=== PATIENT | female | born 1975 | race Caucasian/White ===

== ENCOUNTER → 2017-05-06 | Outpatient (CLI) | payer OTHER ==
--- NOTE | 2017-05-06 10:38 | CT ---
EXAMINATION TYPE: CT abdomen pelvis w con DATE OF EXAM: 05/06/2017 COMPARISON: NONE HISTORY: Bowel issues post total hysterectomy CT DLP: 373.4 mGycm CONTRAST: CT scan of the abdomen and pelvis is performed without Oral Contrast and with IV Contrast, patient in jected with 100 mL of Omnipaque 300. FINDINGS: LUNG BASES-: No visible nodule. No infiltrate. LIVER/GB: No calcified gallstones. Small hepatic cyst posterior segment right hepatic lobe. Mild he patic steatosis. Biliary tree is of normal caliber. PANCREAS: No inflammation. No distinct mass. SPLEEN: No splenic enlargement. No lesion seen. ADRENALS: No nodule. No thickening. KIDNEYS/BLADDER: No hydronephrosis. No nephrolithiasis. No disctinct renal mass. Urinary bladder g rossly unremarkable. BOWEL: Normal appendix. Normal bowel caliber. No inflammation. Mild fecal stasis identified. GENITAL ORGANS: Hysterectomy changes are identified. LYMPH NODES: No greater than 1cm abdominal or pelvic lymph nodes are appreciated. AORTA: No significant abnormality. OSSEOUS STRUCTURES: No significant abnormality is seen. OTHER: No significant additional abnormality is seen. IMPRESSION: 1. Mild fecal stasis. 2. Mild hepatic steatosis. 3. Small hepatic cyst.
== END | disposition home or self-care (01) ==
LOC: RADCTMAIN 09:51
PROVIDERS: ATTEND Family Medicine
DX: K76.0 Fatty (change of) liver, not elsewhere classified (principal); K76.89 Other specified diseases of liver; R93.3 Abnormal findings on diagnostic imaging of other parts of digestive tract
CPT/HCPCS: 74177; Q9967

== ENCOUNTER 2017-05-14 11:29 | Emergency (ER) | payer OTHER ==
[2017-05-14] MEDS ORDERED: KETOROLAC 60 MG/2 ML VIAL IVP STA (12:27)
[2017-05-14] MEDS ORDERED: PROMETHAZINE INJ 25 MG/ML 1 ML VIAL IM STA (12:27)
[2017-05-14] MEDS ORDERED: diphenhydrAMINE 50 MG/ML 1 ML VIAL IVP STA (12:27)
[2017-05-14] MEDS ORDERED: SODIUM CHLORIDE 0.9% 1,000 ML IV ONE (12:28)
--- NOTE | 2017-05-14 12:34 | ED ---
General Adult HPI - General Chief complaint: Headache Stated complaint: Headache 13 days Time Seen by Provider: 05/14/17 11:50 Source: patient, RN notes reviewed Mode of arrival: ambulatory Limitations: no limitations - History of Present Illness Initial comments: This is a 42-year-old female who presents emergency Department with a past medical history significant for migraine headaches. Patient states this migraine headache has last 13 days. Patient states this migraine headache is no different than previous migraine headaches except normally she follows up with her neurologist but the neurologist had a family emergency is unable to see her. Patient denies any numbness weakness. patient states his headache is no different than previous headaches she's had. Patient denies any head trauma. Patient denies any recent fever chills or cough. Patient denies any neck stiffness. - Related Data Home Medications Medication Instructions Recorded Confirmed Albuterol Inhaler [Ventolin Hfa 2 puff INHALATION RT-Q6H PRN 05/14/17 05/14/17 Inhaler] Estradiol [Climara 0.1 MG] 1 patch TRANSDERM CHRISTIANSON 05/14/17 05/14/17 Ondansetron [Zofran ODT] 4 mg PO Q8HR PRN 05/14/17 05/14/17 Ondansetron [Zofran ODT] 8 mg PO Q8HR PRN 05/14/17 05/14/17 Promethazine HCl [Phenadoz] 25 mg RECTAL DAILY PRN 05/14/17 05/14/17 Promethazine Suppository 12.5 mg RECTAL DAILY PRN 05/14/17 05/14/17 [Phenergan] SUMAtriptan SUCCINATE [Imitrex] 4 mg SQ DAILY PRN 05/14/17 05/14/17 SUMAtriptan SUCCINATE [Imitrex] 50 mg PO DAILY PRN 05/14/17 05/14/17 Allergies Allergy/AdvReac Type Severity Reaction Status Date / Time Penicillins Allergy Unknown Verified 05/14/17 12:11 Childhood Review of Systems ROS Statement: Those systems with pertinent positive or pertinent negative responses have been documented in the HPI. ROS Other: All systems not noted in ROS Statement are negative. Past Medical History Additional Past Medical History / Comment(s): Migraines History of Any Multi-Drug Resistant Organisms: None Reported Past Surgical History: Hysterectomy Additional Past Surgical History / Comment(s): Nose reconstruction, severed urterer Past Psychological History: No Psychological Hx Reported Smoking Status: Never smoker Past Alcohol Use History: None Reported Past Drug Use History: None Reported General Exam - General Exam Comments Initial Comments: GENERAL: Patient is well-developed and well-nourished. Patient is nontoxic and well- hydrated and is in mild distress. ENT: Neck is soft and supple. No significant lymphadenopathy is noted. Oropharynx is clear. Moist mucous membranes. Neck has full range of motion without eliciting any pain. EYES: The sclera were anicteric and conjunctiva were pink and moist. Extraocular movements were intact and pupils were equal round and reactive to light. Eyelids were unremarkable. PULMONARY: Unlabored respirations. Good breath sounds bilaterally. No audible rales rhonchi or wheezing was noted. CARDIOVASCULAR: There is a regular rate and rhythm without any murmurs gallops or rubs. ABDOMEN: Soft and nontender with normal bowel sounds. SKIN: Skin is clear with no lesions or rashes and otherwise unremarkable. NEUROLOGIC: Patient is alert and oriented x3. Cranial nerves II through XII are grossly intact. Motor and sensory are also intact. Normal speech, volume and content. Symmetrical smile. MUSCULOSKELETAL: Normal extremities with adequate strength and full range of motion. LYMPHATICS: No significant lymphadenopathy is noted PSYCHIATRIC: Normal psychiatric evaluation. Limitations: no limitations Course Vital Signs 05/14/17 05/14/17 11:50 13:38 Temperature 97.6 F Pulse Rate 81 79 Respiratory 18 18 Rate Blood Pressure 116/73 120/78 O2 Sat by Pulse 99 100 Oximetry Medical Decision Making - Medical Decision Making Patient is feeling considerably better. Patient is requesting go home. Disposition Clinical Impression: Migraine Disposition: HOME SELF-CARE Condition: Good Instructions: Migraine Headache (ED) Referrals: Nurys Ba DO [Primary Care Provider] - 1-2 days Time of Disposition: 14:52
[2017-05-14] MEDS ORDERED: ONDANSETRON 4 MG/2 ML VIAL IVP STA (13:36)
[2017-05-14] MEDS ORDERED: DIHYDROERGOTAMINE MESYLATE 1 MG/ML 1 ML AMP IVP STA (14:19)
[2017-05-14] MEDS ORDERED: HYDROmorphone 0.5 MG/0.5 ML SYRINGE IVP STA (14:35)
[2017-05-14 15:10] VITALS: BP 113/69; PULSE 65; RESP 16; TEMP 97.9
== END 2017-05-14 15:16 | disposition home or self-care (01) ==
LOC: EC 11:29
DX: G43.909 Migraine, unspecified, not intractable, without status migrainosus (principal); Z79.3 Long term (current) use of hormonal contraceptives; Z88.0 Allergy status to penicillin
CPT/HCPCS: 99283; 96374; 96375 ×3; 96361; 96372; J1200; J2550; J2405; J1885; J1170

== ENCOUNTER 2017-09-25 02:28 | Observation (INO) | payer OTHER ==
[2017-09-25] MEDS ORDERED: SODIUM CHLORIDE 0.9% 1,000 ML IV STA (02:55)
[2017-09-25] MEDS ORDERED: ONDANSETRON 4 MG/2 ML VIAL IVP STA (03:12)
[2017-09-25] MEDS ORDERED: PANTOPRAZOLE 40 MG/10 ML VIAL IVP STA (03:22)
--- NOTE | 2017-09-25 03:22 | ED ---
Abdominal Pain HPI - General Source: patient, EMS, RN notes reviewed Mode of arrival: EMS Limitations: no limitations <Jared Mcghee - Last Filed: 09/25/17 04:19> <Kulwant Corbett - Last Filed: 09/25/17 05:59> - General Chief Complaint: Abdominal Pain Stated Complaint: Constipation Time Seen by Provider: 09/25/17 02:54 - History of Present Illness Initial Comments: 42-year-old female presents emergency Department chief complaint of abdominal pain. Patient states that she has not had a bowel movement in the last 10 days. She states her last bowel movement was on Easter. She states that June 2016 she had an extensive surgery in which she had a hysterectomy for endometriosis. She states that she's had Patient after including ileus is, obstruction. Patient states that she try given herself an enema took biscodyl laxative and magnesium citrate as directed by her primary care physician. She had no relief she started vomiting. Patient states that she called her insurance for full be seen and states that they called EMS for. She states that she has lower abdominal pain, bloating. Patient states that she's been vomiting of black colored material. Patient denies any fevers, chills, headache or dizziness or chest pain or shortness of breath. She states that she 's been straining so hard that she has been having some bleeding. (Jared Mcghee ) - Related Data Home Medications Medication Instructions Recorded Confirmed Albuterol Inhaler [Ventolin Hfa 2 puff INHALATION RT-Q6H PRN 05/14/17 05/14/17 Inhaler] Estradiol [Climara 0.1 MG] 1 patch TRANSDERM CHRISTIANSON 05/14/17 05/14/17 Ondansetron [Zofran ODT] 4 mg PO Q8HR PRN 05/14/17 05/14/17 Ondansetron [Zofran ODT] 8 mg PO Q8HR PRN 05/14/17 05/14/17 Promethazine HCl [Phenadoz] 25 mg RECTAL DAILY PRN 05/14/17 05/14/17 Promethazine Suppository 12.5 mg RECTAL DAILY PRN 05/14/17 05/14/17 [Phenergan] SUMAtriptan SUCCINATE [Imitrex] 4 mg SQ DAILY PRN 05/14/17 05/14/17 SUMAtriptan SUCCINATE [Imitrex] 50 mg PO DAILY PRN 05/14/17 05/14/17 Allergies Allergy/AdvReac Type Severity Reaction Status Date / Time Penicillins Allergy Unknown Verified 09/25/17 02:38 Childhood Review of Systems ROS Other: All systems not noted in ROS Statement are negative. <Jared Mcghee - Last Filed: 09/25/17 04:19> ROS Other: All systems not noted in ROS Statement are negative. <Kulwant Corbett - Last Filed: 09/25/17 05:59> ROS Statement: Those systems with pertinent positive or pertinent negative responses have been documented in the HPI. Past Medical History Additional Past Medical History / Comment(s): Migraines History of Any Multi-Drug Resistant Organisms: None Reported Past Surgical History: Hysterectomy Additional Past Surgical History / Comment(s): Nose reconstruction, severed urterer Past Psychological History: No Psychological Hx Reported Smoking Status: Never smoker Past Alcohol Use History: Occasional Past Drug Use History: None Reported <Jared Mcghee - Last Filed: 09/25/17 04:19> General Exam Limitations: no limitations General appearance: alert, in no apparent distress Head exam: Present: atraumatic, normocephalic, normal inspection Neck exam: Present: normal inspection. Absent: tenderness, meningismus, lymphadenopathy Respiratory exam: Present: normal lung sounds bilaterally. Absent: respiratory distress, wheezes, rales, rhonchi, stridor Cardiovascular Exam: Present: regular rate, normal rhythm, normal heart sounds. Absent: systolic murmur, diastolic murmur, rubs, gallop, clicks GI/Abdominal exam: Present: soft, distended, tenderness, normal bowel sounds. Absent: guarding, rebound, rigid Back exam: Absent: CVA tenderness (R), CVA tenderness (L) Skin exam: Present: warm, dry, intact, normal color. Absent: rash <Jared Mcghee - Last Filed: 09/25/17 04:19> Course <Jared Mcghee - Last Filed: 09/25/17 04:19> <Kulwant Corbett - Last Filed: 09/25/17 05:59> Vital Signs 09/25/17 09/25/17 02:36 04:42 Temperature 97.9 F Pulse Rate 89 102 H Respiratory 18 18 Rate Blood Pressure 112/51 101/65 O2 Sat by Pulse 98 100 Oximetry - Reevaluation(s) Reevaluation #1: 09/25/17 05:57 Patient still complain of pain and nausea and vomiting. Patient reevaluated by myself, Dr. Corbett. Patient does have moderate tenderness left lower quadrant. does not feel comfortable with discharge home. Case was discussed with practitioner Milagro armijo, who will admit for Dr. Grier, covering for Dr. Watkins. (Kulwant Corbett) Medical Decision Making - Lab Data Result diagrams: 09/25/17 03:15 09/25/17 03:15 <Jared Mcghee - Last Filed: 09/25/17 04:19> - Lab Data Result diagrams: 09/25/17 03:15 09/25/17 03:15 - Radiology Data Radiology results: image reviewed (Computed tomography scan of the abdomen pelvis shows mild wall thickening descending colon and sigmoid colon consistent with nonspecific colitis. Mild constipation.) <Kulwant Corbett - Last Filed: 09/25/17 05:59> - Medical Decision Making 42-year-old female presented for constipation abdominal issues. Patient's had ongoing issues ever since her surgery. Patient CT does not show any evidence of ileus or obstruction. She does have moderate constipation mild colitis. Patient will not be given enema secondary to her place of this time. She'll be given lactulose. Patient is advised follow-up with her surgeon tomorrow and return for any worsening symptoms. (Jared Mcghee) Patient does not meet sepsis criteria as tachycardia is felt to be secondary to discomfort. (Kulwant Corbett) - Lab Data Lab Results 09/25/17 09/25/17 09/25/17 Range/Units 03:15 03:15 03:15 WBC 12.5 H (3.8-10.6) k/uL RBC 4.99 (3.80-5.40) m/uL Hgb 15.0 (11.4-16.0) gm/dL Hct 43.5 (34.0-46.0) % MCV 87.0 (80.0-100.0) fL MCH 30.0 (25.0-35.0) pg MCHC 34.4 (31.0-37.0) g/dL RDW 12.5 (11.5-15.5) % Plt Count 296 (150-450) k/uL Neutrophils % 86 % Lymphocytes % 7 % Monocytes % 6 % Eosinophils % 1 % Basophils % 0 % Neutrophils # 10.7 H (1.3-7.7) k/uL Lymphocytes # 0.9 L (1.0-4.8) k/uL Monocytes # 0.7 (0-1.0) k/uL Eosinophils # 0.1 (0-0.7) k/uL Basophils # 0.0 (0-0.2) k/uL Sodium 142 (137-145) mmol/L Potassium 4.8 (3.5-5.1) mmol/L Chloride 103 (98-107) mmol/L Carbon Dioxide 22 (22-30) mmol/L Anion Gap 17 mmol/L BUN 14 (7-17) mg/dL Creatinine 0.70 (0.52-1.04) mg/dL Est GFR (CKD-EPI)AfAm >90 (>60 ml/min/1.73 sqM) Est GFR (CKD-EPI)NonAf >90 (>60 ml/min/1.73 sqM) Glucose 122 H (74-99) mg/dL Calcium 10.0 (8.4-10.2) mg/dL Total Bilirubin 0.7 (0.2-1.3) mg/dL AST 34 (14-36) U/L ALT 26 (9-52) U/L Alkaline Phosphatase 92 (38-126) U/L Total Protein 8.8 H (6.3-8.2) g/dL Albumin 4.9 (3.5-5.0) g/dL Amylase 61 (30-110) U/L Lipase 85 (23-300) U/L Urine Color Yellow Urine Appearance Clear (Clear) Urine pH 6.5 (5.0-8.0) Ur Specific [place] 1.017 (1.001-1.035) Urine Protein Negative (Negative) Urine Glucose (UA) Negative (Negative) Urine Ketones Negative (Negative) Urine Blood Negative (Negative) Urine Nitrite Negative (Negative) Urine Bilirubin Negative (Negative) Urine Urobilinogen <2.0 (<2.0) mg/dL Ur Leukocyte Esterase Negative (Negative) Disposition Time of Disposition: 04:20 <Jared Mcghee - Last Filed: 09/25/17 04:19> <Kulwant Corbett - Last Filed: 09/25/17 05:59> Clinical Impression: Abdominal pain, Constipation, Nausea & vomiting, Colitis Disposition: ADMITTED IP TO THIS [facility] Condition: Stable Instructions: Abdominal Pain (ED), Obstipation (ED) Additional Instructions: Please return to the Emergency Department if symptoms worsen or any other concerns. Referrals: Nurys Watkins DO [Primary Care Provider] - 1-2 days
[2017-09-25] MEDS ORDERED: RX INFO: IV CONTRAST WAS GIVEN 1 EACH MISC MISCELLANE PRN (03:29)
[2017-09-25 03:30] LABS: Basophils % (A) 0 %; Eosinophils # (A) 0.1 k/uL (0-0.7); Eosinophils % (A) 1 %; HCT 43.5 % (34.0-46.0); Lymphocytes # (A) 0.9 k/uL (1.0-4.8); Lymphocytes % (A) 7 %; MCHC 34.4 g/dL (31.0-37.0); Mean Platelet Volume 6.9; Monocytes # (A) 0.7 k/uL (0-1.0); Monocytes % (A) 6 %; Neutrophils # (A) 10.7 k/uL (1.3-7.7); Neutrophils % (A) 86 %; Platelet Count 296 k/uL (150-450); RBC 4.99 m/uL (3.80-5.40); RDW 12.5 % (11.5-15.5); WBC 12.5 k/uL (3.8-10.6)
[2017-09-25 03:31] LABS: Appearance,Urine Clear (Clear); Bilirubin,Urine Negative (Negative); Blood,Urine Negative (Negative); Color,Urine Yellow; Glucose,Urine (UA) Negative (Negative); Ketones,Urine Negative (Negative); Leukocyte Esterase,Urine Negative (Negative); Nitrite,Urine Negative (Negative); PH, Urine 6.5 (5.0-8.0); Protein,Urine Negative (Negative); Specific Gravity,Urine 1.017 (1.001-1.035); Urobilinogen,Urine <2.0 mg/dL (<2.0)
--- NOTE | 2017-09-25 03:33 | XR ---
EXAMINATION TYPE: XR KUB DATE OF EXAM: 09/25/2017 Comparison none. HISTORY: History abdominal pain. Constipation. TECHNIQUE: 2 views FINDINGS: There is no sign of intestinal obstruction or pneumoperitoneum. Fecal pattern is normal. Hyun ng bases are clear. There are no pathologic calcifications. IMPRESSION: Nonacute abdomen. No sign of constipation.
[2017-09-25 03:42] LABS: Albumin 4.9 g/dL (3.5-5.0); Amylase 61 U/L (30-110); Anion Gap 17 mmol/L; Carbon Dioxide 22 mmol/L (22-30); Chloride 103 mmol/L (98-107); Glucose 122 mg/dL (74-99); Lipase 85 U/L (23-300); Sodium 142 mmol/L (137-145); Total Bilirubin 0.7 mg/dL (0.2-1.3); Total Protein 8.8 g/dL (6.3-8.2)
[2017-09-25 03:44] LABS: ALT 26 U/L (9-52); AST 34 U/L (14-36); Alkaline Phosphatase 92 U/L (38-126); Blood Urea Nitrogen 14 mg/dL (7-17); Potassium 4.8 mmol/L (3.5-5.1)
--- NOTE | 2017-09-25 03:55 | CT ---
EXAMINATION TYPE: CT abdomen pelvis w con DATE OF EXAM: 09/25/2017 COMPARISON: 05/06/2017 HISTORY: Constipation CT DLP: 431.90 mGycm Automated exposure control for dose reduction was used. TECHNIQUE: Helical acquisition of images was performed from the lung bases through the pelvis. CONTRAST: Performed without Oral Contrast and with IV Contrast, patient injected with 100 mL of Isovue 300. FINDINGS: Lung bases are clear. There is no pleural effusion. Heart size is normal. Liver spleen pancreas gallbladder appear normal. Bile ducts are not dilated. There is no adrenal mass. Kidneys show satisfactory contrast opacification. There is no hydronephrosi s. There is no retroperitoneal adenopathy. There is no ascites. There is fecal material throughout th e large bowel. Appendix appears normal. There is some mild wall thickening involving the descending c olon. Transverse colon appears normal. There is mild thickening of the wall of the sigmoid colon as w ell. Small bowel is not dilated. The bony structures are intact. There is no evidence of a pelvic mass. Bladder distends smoothly.. IMPRESSION: THERE IS MILD WALL THICKENING OF THE DESCENDING COLON AND SIGMOID COLON THAT IS NEW COMPARED TO LAST EXAM AND CONSISTENT WITH A NONSPECIFIC COLITIS. MILD CONSTIPATION.
[2017-09-25] MEDS ORDERED: diphenhydrAMINE 50 MG/ML 1 ML VIAL IVP STA (04:18)
[2017-09-25] MEDS ORDERED: LACTULOSE 20 GM/30 ML CUP PO ONE ×2 (04:18→04:19)
[2017-09-25] MEDS ORDERED: METOCLOPRAMIDE 5 MG/ML 2 ML VIAL IVP STA (04:18)
[2017-09-25] MEDS ORDERED: ONDANSETRON 4 MG/2 ML VIAL IVP PRN (05:59)
[2017-09-25] MEDS ORDERED: NALOXONE 0.4 MG/ML 1 ML VIAL IV PRN (05:59)
[2017-09-25] MEDS: MORPHINE SULFATE 4MG/4ML SYRG IV PRN ×2 (06:15→11:37)
[2017-09-25] MEDS: SODIUM CHLORIDE 0.9% 1,000 ML IV SCH ×2 (06:16→16:20)
[2017-09-25] MEDS ORDERED: LEVOFLOXACIN 500MG-D5W PMX 500 MG in DEXTROSE/WATER 1 100ML.BAG IVPB SCH (06:30)
[2017-09-25 11:33] VITALS: RESP 18
--- NOTE | 2017-09-25 14:40 | P.CONS ---
History of Present Illness - Reason for Consult Consult date: 09/25/17 colitis Requesting physician: Scott Grier - History of Present Illness 42-year-old female patient of Dr. Holliday with a past medical history of stage IV endometriosis status post total hysterectomy bilateral nephrectomy 2016. Prior to surgery she had a normal bowel pattern, postoperatively she has been dealing with severe constipation averaging a bowel movement once or twice week. She has been evaluated by [facility] razor grinder Dr. Lester regarding this issue she's had 2 colonoscopies the last one August [address] Lester and reported as normal. She has tried increasing fiber drinking fluids exercising as well as multiple [id number] laxatives including MiraLAX and Senokot Dulcolax suppositories citrated magnesia without success. She was admitted with a 9 day history of severe constipation/obstipation. She tried rescue enema suppositories at home with no improvement. She drank a bottle of citrate of mag prior to admission and vomited with dark colored material which she thought was feces. Admission white count 12.5. Hemoglobin 15. Afebrile. Since admission she has had a few moderate-sized bowel movements and feels better. Minimal abdominal discomfort. CT of the abdomen and pelvis reported mild wall thickening at the descending colon and sigmoid consistent with a nonspecific colitis and mild constipation. Review of Systems Constitutional: Denies fever, chills, sweats, weight gain, or loss. HEENT: Negative for migraines, blurred vision or loss, earaches, drainage, tinnitus, oral mucosal lesions, dysphagia, or odynophagia. CARDIAC: Negative for chest pain, arrhythmias, or palpitation. RESPIRATORY: Negative for shortness of breath, hemoptysis, cough, or sputum production. GI: See HPI for pertinent findings. : Negative for hematuria, urgency, frequency, polyuria, or dysuria. GYNc: Denies possibility of . Negative vaginal discharge. MUSCULOSKELETAL: Negative for muscle aches, swelling, arthritis, and arthralgias. NEUROLOGIC: Negative for stroke or TIA. ENDOCRINE: Negative for thyroid problems. SKIN: Negative for rash or itching. PSYCHIATRIC: Negative history for depression and anxiety Past Medical History Past Medical History: Asthma, Renal Disease Additional Past Medical History / Comment(s): Abdominal issues since radical hysterectom 06/2016 including ileus, constipation-normally has BM every 5-6 days and last BM was 09/15/17, migraines with botox injections, kidney stone that severed her urethra-surgically repaired, History of Any Multi-Drug Resistant Organisms: None Reported Past Surgical History: Hysterectomy Additional Past Surgical History / Comment(s): 06/2016 radical hysterectomy with L oophorectomy d/t endometriosis, L oophorectomy, 1993 severed ureter with surgical repair, reconstruction on nose. Past Anesthesia/Blood Transfusion Reactions: No Reported Reaction Smoking Status: Never smoker - Past Family History Father Family Medical History: Myocardial Infarction ([place]) Additional Family Medical History / Comment(s): Congestive heart "disease". Father had a [place] " maker" at the age of 55 yrs. Mother Additional Family Medical History / Comment(s): Mother had shingells involving her ear-deaf now and nerve damage also causes vertigo. Medications and Allergies Home Medications Medication Instructions Recorded Confirmed Type Albuterol Inhaler [Ventolin Hfa 2 puff INHALATION RT-Q6H PRN 05/14/17 09/25/17 History Inhaler] Estradiol [Climara 0.1 MG] 1 patch TRANSDERM [place] 05/14/17 09/25/17 History Ondansetron [Zofran ODT] 8 mg PO Q8HR PRN 05/14/17 09/25/17 History SUMAtriptan SUCCINATE [Imitrex] 4 mg SQ DAILY PRN 05/14/17 09/25/17 History Bisacodyl 10 mg RECTAL ONCE PRN 09/25/17 09/25/17 History Gabapentin [Neurontin] 600 mg PO HS 09/25/17 09/25/17 History Ibuprofen [Motrin] 800 mg PO Q6H PRN 09/25/17 09/25/17 History Allergies Allergy/AdvReac Type Severity Reaction Status Date / Time Penicillins Allergy Unknown Verified 09/25/17 07:18 Childhood Physical Exam Vitals: Vital Signs Temp Pulse Resp BP Pulse Ox 09/25/17 13:35 97.2 F L 79 18 99/62 100 09/25/17 11:32 98.0 F 73 18 100/59 100 09/25/17 11:00 97.9 F 92 16 111/67 97 09/25/17 07:35 89 16 105/65 100 09/25/17 06:21 90 16 106/67 100 09/25/17 04:42 102 H 18 101/65 100 09/25/17 02:36 97.9 F 89 18 112/51 98 Intake and Output 09/24/17 09/25/17 09/25/17 22:59 06:59 14:59 Other: Weight 59.874 kg General appearance: The patient is alert, oriented, in no acute distress. HET: Head is normocephalic and atraumatic. Pupils are equal and reactive. Oropharynx is clear without lesions. Neck: Supple without lymphadenopathy. Trachea midline. Heart: S1 S2. Regular rate and rhythm. Lungs: No crackles or wheezes are heard. Abdomen: Soft, very mild tenderness to the midabdomen, mildly bloated with bowel sounds. No peritoneal signs. No palpable organomegaly or masses. Extremities: Normal skin color and turgor. No cyanosis, rash, ulceration, clubbing, or edema. Radial and pedal pulses are 2/4 bilaterally. Neurological: No focal deficits. Strength and sensation are grossly intact. Results CBC & Chem 7: 09/25/17 03:15 09/25/17 03:15 Labs: Abnormal Lab Results - Last 24 Hours (Table) 09/25/17 09/25/17 Range/Units 03:15 03:15 WBC 12.5 H (3.8-10.6) k/uL Neutrophils # 10.7 H (1.3-7.7) k/uL Lymphocytes # 0.9 L (1.0-4.8) k/uL Glucose 122 H (74-99) mg/dL Total Protein 8.8 H (6.3-8.2) g/dL CT scan - abdomen: report reviewed (Dr. Bell) Assessment and Plan (1) Constipation Narrative/Plan: 42-year-old female admitted with CT imaging suggestive of descending sigmoid colitis secondary to severe constipation and obstipation that has been ongoing since her total hysterectomy more than a year ago. Over the counter laxatives dietary changes and exercise have not improved her symptoms. Colonoscopy last year reported as normal. Current Visit: Yes Status: Acute Code(s): K59.00 - CONSTIPATION, UNSPECIFIED SNOMED Code(s): 93672875 (2) Abdominal pain Current Visit: Yes Status: Acute Code(s): R10.9 - UNSPECIFIED ABDOMINAL PAIN SNOMED Code(s): 91643646 Plan: 1. Presently patient is resting comfortably and her symptoms have greatly improved. She is requesting discharge if agreeable with attending. 2. Long discussion was held at bedside with patient regarding her diet, exercise regimen, and [id number] stool softeners/laxatives. She was advised to keep a bowel diarrhea for 2 weeks with suggestion of twice daily Senokot S and MiraLAX. She was advised she can take extra of MiraLAX as needed daily. Continue with a healthy diet fluid intake and exercise. 3. Return to office in 10 days for reevaluation. She is agreeable with this plan a care. Thank you for this kind referral and the opportunity to participate in the care of your patient. This consultation was discussed with Dr. Bell. The impression and plan of care have been directed as dictated.
[2017-09-25 16:32] VITALS: BP 102/63; PULSE 80; TEMP 97.4
--- NOTE | 2017-09-25 18:15 | P.HPIM ---
History of Present Illness 42-year-old female patient of Dr. Holliday with a past medical history of stage IV endometriosis status post total hysterectomy bilateral nephrectomy 2016. Prior to surgery she had a normal bowel pattern, postoperatively she has been dealing with severe constipation averaging a bowel movement once or twice week. She has been evaluated by [facility] strip machine operator Dr. Lester regarding this issue she's had 2 colonoscopies the last one August [address] Lester and reported as normal. She has tried increasing fiber drinking fluids exercising as well as multiple [id number] laxatives including MiraLAX and Senokot Dulcolax suppositories citrated magnesia without success. She was admitted with a 9 day history of severe constipation/obstipation. She tried rescue enema suppositories at home with no improvement. She drank a bottle of citrate of mag prior to admission and vomited with dark colored material which she thought was feces. Patient did move her bowel. Patient stopped her medications for constipation recently as she was using these medications for long time. Patient is feeling well wanted to go home patient will be discharged today. And the by the time I saw the patient gastroneurology saw the patient and they recommended increase in the dose of senna and continue MiraLAX on his as-needed basis. Review of Systems REVIEW OF SYSTEMS: CONSTITUTIONAL: No fever, no malaise, no fatigue. HEENT: No recent visual problems or hearing problems. Denied any sore throat. CARDIOVASCULAR: No chest pain, orthopnea, PND, no palpitations, no syncope. PULMONARY: No shortness of breath, no cough, no hemoptysis. GASTROINTESTINAL: No diarrhea, no nausea, no vomitings. NEUROLOGICAL: No headaches, no weakness, no numbness. HEMATOLOGICAL: Denies any bleeding or petechiae. GENITOURINARY: Denies any burning micturition, frequency, or urgency. MUSCULOSKELETAL/RHEUMATOLOGICAL: Denies any joint pain, swelling, or any muscle pain. ENDOCRINE: Denies any polyuria or polydipsia. The rest of the 14-point review of systems is negative. Past Medical History Past Medical History: Asthma, Renal Disease Additional Past Medical History / Comment(s): Abdominal issues since radical hysterectom 06/2016 including ileus, constipation-normally has BM every 5-6 days and last BM was 09/15/17, migraines with botox injections, kidney stone that severed her urethra-surgically repaired, History of Any Multi-Drug Resistant Organisms: None Reported Past Surgical History: Hysterectomy Additional Past Surgical History / Comment(s): 06/2016 radical hysterectomy with L oophorectomy d/t endometriosis, L oophorectomy, 1993 severed ureter with surgical repair, reconstruction on nose. Past Anesthesia/Blood Transfusion Reactions: No Reported Reaction Smoking Status: Never smoker - Past Family History Father Family Medical History: Myocardial Infarction ([place]) Additional Family Medical History / Comment(s): Congestive heart "disease". Father had a [place] " maker" at the age of 55 yrs. Mother Additional Family Medical History / Comment(s): Mother had shingells involving her ear-deaf now and nerve damage also causes vertigo. Medications and Allergies Home Medications Medication Instructions Recorded Confirmed Type Albuterol Inhaler [Ventolin Hfa 2 puff INHALATION RT-Q6H PRN 05/14/17 09/25/17 History Inhaler] Estradiol [Climara 0.1 MG] 1 patch TRANSDERM MO 05/14/17 09/25/17 History Ondansetron [Zofran ODT] 8 mg PO Q8HR PRN 05/14/17 09/25/17 History SUMAtriptan SUCCINATE [Imitrex] 4 mg SQ DAILY PRN 05/14/17 09/25/17 History Bisacodyl 10 mg RECTAL ONCE PRN 09/25/17 09/25/17 History Gabapentin [Neurontin] 600 mg PO HS 09/25/17 09/25/17 History Ibuprofen [Motrin] 800 mg PO Q6H PRN 09/25/17 09/25/17 History Allergies Allergy/AdvReac Type Severity Reaction Status Date / Time Penicillins Allergy Unknown Verified 09/25/17 07:18 Childhood Physical Exam Vitals: Vital Signs Temp Pulse Resp BP Pulse Ox 09/25/17 16:31 97.4 F L 80 18 102/63 99 09/25/17 16:19 98.4 F 100 18 177/83 100 09/25/17 13:35 97.2 F L 79 18 99/62 100 09/25/17 11:32 98.0 F 73 18 100/59 100 09/25/17 11:00 97.9 F 92 16 111/67 97 09/25/17 07:35 89 16 105/65 100 09/25/17 06:21 90 16 106/67 100 09/25/17 04:42 102 H 18 101/65 100 09/25/17 02:36 97.9 F 89 18 112/51 98 Intake and Output 09/25/17 09/25/17 09/25/17 06:59 14:59 22:59 Other: Weight 59.874 kg PHYSICAL EXAMINATION: GENERAL: The patient is alert and oriented x3, not in any acute distress. Well developed, well nourished. HEENT: Pupils are round and equally reacting to light. EOMI. No scleral icterus. No conjunctival pallor. Normocephalic, atraumatic. No pharyngeal erythema. No thyromegaly. CARDIOVASCULAR: S1 and S2 present. No murmurs, rubs, or gallops. PULMONARY: Chest is clear to auscultation, no wheezing or crackles. ABDOMEN: Soft, nontender, nondistended, normoactive bowel sounds. No palpable organomegaly. MUSCULOSKELETAL: No joint swelling or deformity. EXTREMITIES: No cyanosis, clubbing, or pedal edema. NEUROLOGICAL: Gross neurological examination did not reveal any focal deficits. SKIN: No rashes. Results CBC & Chem 7: 09/25/17 03:15 09/25/17 03:15 Labs: Abnormal Lab Results - Last 24 Hours (Table) 09/25/17 09/25/17 Range/Units 03:15 03:15 WBC 12.5 H (3.8-10.6) k/uL Neutrophils # 10.7 H (1.3-7.7) k/uL Lymphocytes # 0.9 L (1.0-4.8) k/uL Glucose 122 H (74-99) mg/dL Total Protein 8.8 H (6.3-8.2) g/dL Thrombosis Risk Factor Assmnt - Choose All That Apply Any of the Below Risk Factors Present?: Yes Each Factor Represents 1 point: Age 41-60 years Other Risk Factors: No Other congenital or acquired thrombophilia - If yes, enter type in comment: No Thrombosis Risk Factor Assessment Total Risk Factor Score: 1 Thrombosis Risk Factor Assessment Level: Low Risk Assessment and Plan Plan: -Abdominal pain secondary to constipation which resolved after bowel movement patient is clinically doing well will not need to stay in the hospital patient will be discharged today. Leukocytosis: Reactive without any signs or symptoms of infection. Patient will be discharged today with the above-mentioned recommendations.
--- NOTE | 2017-09-25 18:15 | P.DS ---
Providers Date of admission: 09/25/17 05:59 Attending physician: Scott Grier Consults: 09/25/17 06:00 Consult Physician Urgent Consulting Provider: Sonya Bell Consult Reason/Comments: colitis Do you want consulting provider notified?: Yes Primary care physician: Nurys Ba Hospital Course: Please refer to my HPI Patient Condition at Discharge: Stable Plan - Discharge Summary Discharge Rx Participant: No New Discharge Prescriptions: No Action Albuterol Inhaler [Ventolin Hfa Inhaler] 2 puff INHALATION RT-Q6H PRN PRN Reason: Shortness Of Breath Estradiol [Climara 0.1 MG] 1 patch TRANSDERM MO Ondansetron [Zofran ODT] 8 mg PO Q8HR PRN PRN Reason: Nausea SUMAtriptan SUCCINATE [Imitrex] 4 mg SQ DAILY PRN PRN Reason: Migraine Headache Gabapentin [Neurontin] 600 mg PO HS Bisacodyl 10 mg RECTAL ONCE PRN PRN Reason: Constipation Ibuprofen [Motrin] 800 mg PO Q6H PRN PRN Reason: Pain Discharge Medication List Albuterol Inhaler [Ventolin Hfa Inhaler] 2 puff INHALATION RT-Q6H PRN 05/14/17 [ History] Estradiol [Climara 0.1 MG] 1 patch TRANSDERM MO 05/14/17 [History] Ondansetron [Zofran ODT] 8 mg PO Q8HR PRN 05/14/17 [History] SUMAtriptan SUCCINATE [Imitrex] 4 mg SQ DAILY PRN 05/14/17 [History] Bisacodyl 10 mg RECTAL ONCE PRN 09/25/17 [History] Gabapentin [Neurontin] 600 mg PO HS 09/25/17 [History] Ibuprofen [Motrin] 800 mg PO Q6H PRN 09/25/17 [History] Follow up Appointment(s)/Referral(s): Joey Aceves MD [STAFF PHYSICIAN] - 10/08/17 5:15 pm (severe constipation) Nurys Ba DO [Primary Care Provider] - 3 Days Patient Instructions/Handouts: Abdominal Pain (ED), Obstipation (ED) Activity/Diet/Wound Care/Special Instructions: Please return to the Emergency Department if symptoms worsen or any other concerns. Discharge Disposition: HOME SELF-CARE
[2017-09-26] MEDS ORDERED: PANTOPRAZOLE 40 MG/10 ML VIAL IV SCH (09:00)
== END 2017-09-25 16:36 | disposition home or self-care (01) ==
LOC: EC 02:28 → 4MS4W 05:59
PROVIDERS: ADMIT Internal Medicine; ATTEND Internal Medicine
DX: K59.00 Constipation, unspecified (principal); D72.829 Elevated white blood cell count, unspecified; R11.2 Nausea with vomiting, unspecified; G43.909 Migraine, unspecified, not intractable, without status migrainosus; J45.909 Unspecified asthma, uncomplicated; Z79.899 Other long term (current) drug therapy; Z88.0 Allergy status to penicillin; Z90.710 Acquired absence of both cervix and uterus; Z90.721 Acquired absence of ovaries, unilateral; Z87.442 Personal history of urinary calculi; Z82.49 Family history of ischemic heart disease and other diseases of the circulatory system; Z82.2 Family history of deafness and hearing loss
CPT/HCPCS: 96366 ×3; 96375 ×6; 96376 ×3; 96361 ×2; 96365 ×2; 99285 ×2; 36415; 80053; 82150; 83690; 85025; 81003; 74018; 74177; G0378; J1200; J2765; J2405; J1956; C9113; Q9967; J2270

== ENCOUNTER 2018-08-27 05:29 | Emergency (ER) | payer OTHER ==
[2018-08-27 05:39] VITALS: TEMP 97.4
[2018-08-27] MEDS ORDERED: SODIUM CHLORIDE 0.9% 1,000 ML IV STA (05:47)
--- NOTE | 2018-08-27 05:47 | ED ---
General Adult HPI - General Chief complaint: Nausea/Vomiting/Diarrhea Stated complaint: vomiting Time Seen by Provider: 08/27/18 05:46 Source: patient Mode of arrival: ambulatory Limitations: no limitations - History of Present Illness Initial comments: Vero is a 43-year-old female with a history of chronic nausea and vomiting who presents the emergency department today for evaluation of possible dehydration, fevers, chills, body aches persistent nausea and decreased by mouth intake for 5 days duration. Patient reports that on of last week she did begin taking Cymbalta, that night she became very nauseated was sick throughout the night. She decided that time not to continue the medication. That she's had persistent nausea and intermittent episodes of nonbloody nonbilious emesis and decreased oral intake since that time. Patient reports she's been experiencing subjective fevers, chills and generalized body aches. She reports that she slept throughout most the day he is over the weekend, contacted her primary care physician on Saturday who advised that she likely has influenza however due to duration of her symptoms she is not a candidate for Tamiflu therefore recommended supportive care, due to persistent symptoms she contacted her stroke enterologist at [facility] on Saturday who advised her to seek care at an emergency department for possible dehydration due to decreasing urinary output. - Related Data Home Medications Medication Instructions Recorded Confirmed Albuterol Inhaler [Ventolin Hfa 2 puff INHALATION RT-Q6H PRN 05/14/17 08/27/18 Inhaler] Ondansetron [Zofran ODT] 8 mg PO Q8HR PRN 05/14/17 08/27/18 SUMAtriptan SUCCINATE [Imitrex] 4 mg SQ DAILY PRN 05/14/17 08/27/18 DULoxetine HCL [Cymbalta] 30 mg PO DAILY 08/27/18 08/27/18 Promethazine HCl [Phenergan] 50 mg RC Q8H PRN 08/27/18 08/27/18 Previous Rx's Medication Instructions Recorded Metoclopramide HCl [Reglan] 5 mg PO TID #12 tablet 08/27/18 Allergies Allergy/AdvReac Type Severity Reaction Status Date / Time Penicillins Allergy Unknown Verified 08/27/18 06:53 Childhood Review of Systems ROS Statement: Those systems with pertinent positive or pertinent negative responses have been documented in the HPI. ROS Other: All systems not noted in ROS Statement are negative. Past Medical History Past Medical History: Asthma, Renal Disease Additional Past Medical History / Comment(s): GI issues since hysterectomy 06/2016 including ileus, constipation-normally has BM every 5-6 days, migraines with botox injections, History of Any Multi-Drug Resistant Organisms: None Reported Past Surgical History: Hysterectomy Additional Past Surgical History / Comment(s): 06/2016 radical hysterectomy with L oophorectomy d/t endometriosis, L oophorectomy, 1993 severed ureter with surgical repair, reconstruction on nose. Past Anesthesia/Blood Transfusion Reactions: No Reported Reaction Past Psychological History: No Psychological Hx Reported Smoking Status: Never smoker Past Alcohol Use History: Occasional Past Drug Use History: None Reported - Past Family History Father Family Medical History: Myocardial Infarction ([place]) Additional Family Medical History / Comment(s): Congestive heart "disease". Father had a [place] " maker" at the age of 55 yrs. Mother Additional Family Medical History / Comment(s): Mother had shingells involving her ear-deaf now and nerve damage also causes vertigo. General Exam - General Exam Comments Initial Comments: Physical Exam GENERAL: Patient is well-developed well-nourished, appears mildly dehydrated and is retching during exam HENT: Normocephalic, Atraumatic. EYES: PERRL, EOMI PULMONARY: Unlabored respirations. No audible rales rhonchi or wheezing was noted. CARDIOVASCULAR: There is a regular rate and rhythm without any murmurs gallops or rubs. ABDOMEN: Soft and nontender with normal bowel sounds. SKIN: Skin is clear with no lesions or rashes and otherwise unremarkable. : Deferred NEUROLOGIC: Patient is alert and oriented x3. Moving all extremities spontaneously MUSCULOSKELETAL: Normal extremities with adequate strength and full range of motion. No lower extremity swelling or edema. No calf tenderness. PSYCHIATRIC: Normal psychiatric evaluation. Limitations: no limitations Limitations: no limitations Course Vital Signs 08/27/18 08/27/18 08/27/18 05:35 06:36 07:33 Temperature 97.4 F L 97.4 F L Pulse Rate 90 94 94 Respiratory 18 16 16 Rate Blood Pressure 119/78 105/70 105/70 O2 Sat by Pulse 99 100 100 Oximetry Medical Decision Making - Medical Decision Making Patient was seen and evaluated history was obtained from patient and review of medical record Patient with a history of chronic nausea and vomiting prescribed home Zofran and rectal Phenergan suppositories. Patient complaining of flulike illness and persistent nausea concerns for dehydration Labs were ordered Reglan and Benadryl were ordered for persistent nausea Influenza swab was ordered due to patient's constellation of symptoms Labs and influenza were unremarkable Results were discussed with the patient able to plan for discharge home at this time Questions pertaining care were answered return parameters discussed patient discharged home in stable condition. - Lab Data Result diagrams: 08/27/18 06:01 08/27/18 06:01 Lab Results 08/27/18 08/27/18 08/27/18 Range/Units 06:01 06:01 06:01 WBC 4.3 (3.8-10.6) k/uL RBC 4.53 (3.80-5.40) m/uL Hgb 13.8 (11.4-16.0) gm/dL Hct 39.6 (34.0-46.0) % MCV 87.4 (80.0-100.0) fL MCH 30.4 (25.0-35.0) pg MCHC 34.8 (31.0-37.0) g/dL RDW 12.4 (11.5-15.5) % Plt Count 260 (150-450) k/uL Neutrophils % 65 % Lymphocytes % 20 % Monocytes % 6 % Eosinophils % 6 % Basophils % 1 % Neutrophils # 2.8 (1.3-7.7) k/uL Lymphocytes # 0.9 L (1.0-4.8) k/uL Monocytes # 0.3 (0-1.0) k/uL Eosinophils # 0.3 (0-0.7) k/uL Basophils # 0.0 (0-0.2) k/uL Sodium 137 (137-145) mmol/L Potassium 3.7 (3.5-5.1) mmol/L Chloride 104 (98-107) mmol/L Carbon Dioxide 23 (22-30) mmol/L Anion Gap 10 mmol/L BUN 16 (7-17) mg/dL Creatinine 0.61 (0.52-1.04) mg/dL Est GFR (CKD-EPI)AfAm >90 (>60 ml/min/1.73 sqM) Est GFR (CKD-EPI)NonAf >90 (>60 ml/min/1.73 sqM) Glucose 98 (74-99) mg/dL Calcium 9.4 (8.4-10.2) mg/dL Total Bilirubin 0.8 (0.2-1.3) mg/dL AST 28 (14-36) U/L ALT 27 (9-52) U/L Alkaline Phosphatase 72 (38-126) U/L Total Protein 7.9 (6.3-8.2) g/dL Albumin 4.5 (3.5-5.0) g/dL Amylase 43 (30-110) U/L Lipase 80 (23-300) U/L Urine Color Urine Appearance (Clear) Urine pH (5.0-8.0) Ur Specific [place] (1.001-1.035) Urine Protein (Negative) Urine Glucose (UA) (Negative) Urine Ketones (Negative) Urine Blood (Negative) Urine Nitrite (Negative) Urine Bilirubin (Negative) Urine Urobilinogen (<2.0) mg/dL Ur Leukocyte Esterase (Negative) Influenza Type A RNA Not Detected (Not Detectd) Influenza Type B (PCR) Not Detected (Not Detectd) 08/27/18 Range/Units 07:12 WBC (3.8-10.6) k/uL RBC (3.80-5.40) m/uL Hgb (11.4-16.0) gm/dL Hct (34.0-46.0) % MCV (80.0-100.0) fL MCH (25.0-35.0) pg MCHC (31.0-37.0) g/dL RDW (11.5-15.5) % Plt Count (150-450) k/uL Neutrophils % % Lymphocytes % % Monocytes % % Eosinophils % % Basophils % % Neutrophils # (1.3-7.7) k/uL Lymphocytes # (1.0-4.8) k/uL Monocytes # (0-1.0) k/uL Eosinophils # (0-0.7) k/uL Basophils # (0-0.2) k/uL Sodium (137-145) mmol/L Potassium (3.5-5.1) mmol/L Chloride (98-107) mmol/L Carbon Dioxide (22-30) mmol/L Anion Gap mmol/L BUN (7-17) mg/dL Creatinine (0.52-1.04) mg/dL Est GFR (CKD-EPI)AfAm (>60 ml/min/1.73 sqM) Est GFR (CKD-EPI)NonAf (>60 ml/min/1.73 sqM) Glucose (74-99) mg/dL Calcium (8.4-10.2) mg/dL Total Bilirubin (0.2-1.3) mg/dL AST (14-36) U/L ALT (9-52) U/L Alkaline Phosphatase (38-126) U/L Total Protein (6.3-8.2) g/dL Albumin (3.5-5.0) g/dL Amylase (30-110) U/L Lipase (23-300) U/L Urine Color Light Yellow Urine Appearance Clear (Clear) Urine pH 5.5 (5.0-8.0) Ur Specific [place] 1.003 (1.001-1.035) Urine Protein Negative (Negative) Urine Glucose (UA) Negative (Negative) Urine Ketones 1+ H (Negative) Urine Blood Negative (Negative) Urine Nitrite Negative (Negative) Urine Bilirubin Negative (Negative) Urine Urobilinogen <2.0 (<2.0) mg/dL Ur Leukocyte Esterase Negative (Negative) Influenza Type A RNA (Not Detectd) Influenza Type B (PCR) (Not Detectd) Disposition Clinical Impression: Nausea & vomiting Disposition: HOME SELF-CARE Condition: Good Instructions (If sedation given, give patient instructions): Acute Nausea and Vomiting (ED) Prescriptions: Metoclopramide HCl [Reglan] 5 mg PO TID #12 tablet Is patient prescribed a controlled substance at d/c from ED?: No Referrals: Nurys Ba DO [Primary Care Provider] - 1-2 days
[2018-08-27 06:16] LABS: Basophils % (A) 1 %; Eosinophils # (A) 0.3 k/uL (0-0.7); Eosinophils % (A) 6 %; HCT 39.6 % (34.0-46.0); HGB 13.8 gm/dL (11.4-16.0); Lymphocytes # (A) 0.9 k/uL (1.0-4.8); Lymphocytes % (A) 20 %; MCH 30.4 pg (25.0-35.0); MCHC 34.8 g/dL (31.0-37.0); MCV 87.4 fL (80.0-100.0); Mean Platelet Volume 6.4; Monocytes # (A) 0.3 k/uL (0-1.0); Monocytes % (A) 6 %; Neutrophils # (A) 2.8 k/uL (1.3-7.7); Neutrophils % (A) 65 %; Platelet Count 260 k/uL (150-450); RBC 4.53 m/uL (3.80-5.40); RDW 12.4 % (11.5-15.5); WBC 4.3 k/uL (3.8-10.6)
[2018-08-27] MEDS ORDERED: diphenhydrAMINE 50 MG/ML 1 ML VIAL IVP STA (06:26)
[2018-08-27] MEDS ORDERED: METOCLOPRAMIDE 5 MG/ML 2 ML VIAL IVP STA (06:26)
[2018-08-27 06:27] LABS: ALT 27 U/L (9-52); AST 28 U/L (14-36); Albumin 4.5 g/dL (3.5-5.0); Alkaline Phosphatase 72 U/L (38-126); Amylase 43 U/L (30-110); Anion Gap 10 mmol/L; Blood Urea Nitrogen 16 mg/dL (7-17); Calcium 9.4 mg/dL (8.4-10.2); Carbon Dioxide 23 mmol/L (22-30); Chloride 104 mmol/L (98-107); Glucose 98 mg/dL (74-99); Lipase 80 U/L (23-300); Potassium 3.7 mmol/L (3.5-5.1); Sodium 137 mmol/L (137-145); Total Bilirubin 0.8 mg/dL (0.2-1.3); Total Protein 7.9 g/dL (6.3-8.2)
[2018-08-27 06:37] VITALS: BP 105/70; PULSE 94; RESP 16
[2018-08-27 07:26] LABS: Appearance,Urine Clear (Clear); Bilirubin,Urine Negative (Negative); Blood,Urine Negative (Negative); Color,Urine Light Yellow; Glucose,Urine (UA) Negative (Negative); Ketones,Urine 1+ (Negative); Leukocyte Esterase,Urine Negative (Negative); Nitrite,Urine Negative (Negative); PH, Urine 5.5 (5.0-8.0); Protein,Urine Negative (Negative); Specific Gravity,Urine 1.003 (1.001-1.035); Urobilinogen,Urine <2.0 mg/dL (<2.0)
== END 2018-08-27 07:33 | disposition home or self-care (01) ==
LOC: EC 05:29
DX: R11.2 Nausea with vomiting, unspecified (principal); R50.9 Fever, unspecified; R52 Pain, unspecified; J45.909 Unspecified asthma, uncomplicated; Z87.42 Personal history of other diseases of the female genital tract; Z90.710 Acquired absence of both cervix and uterus; Z90.721 Acquired absence of ovaries, unilateral; Z98.890 Other specified postprocedural states; Z79.899 Other long term (current) drug therapy; Z88.0 Allergy status to penicillin
CPT/HCPCS: 36415; 80053; 81003; 82150; 83690; 85025; 87502; 96361; 96374; 96375; 99284